=== PATIENT | female | born 2000 | race Caucasian/White ===

== ENCOUNTER 2023-01-04 01:02 | Inpatient (IN) | payer MEDICAID ==
[~2023-01-04 01:02] MED LIST: Sodium Chloride 0.9% 10 ML Syringe FLUSH PRN
[2023-01-04] MEDS ORDERED: Lactated Ringers 1,000 ML IV SCH ×3 (05:30→07:15)
[2023-01-04 06:09] LABS: EOSINOPHILS ABSOLUTE AUTO 0.11 K/mm3 (0.04-0.36); HEMATOCRIT 34.1 % (34.1-44.9); HEMOGLOBIN 10.8 gm/dl (11.2-15.7); IMMATURE GRAN ABSOLUTE AUTO 0.12 K/mm3 (0.00-0.10); IMMATURE GRAN PERCENT AUTO 1.1 % (<=1.0); LYMPHOCYTES ABSOLUTE AUTO 1.66 K/mm3 (1.18-3.74); LYMPHOCYTES PERCENT AUTO 15.4 % (19.3-51.7); MEAN CORPUSCULAR HEMOGLOBIN 30.3 pg (25.6-32.2); MEAN CORPUSCULAR HGB CONC 31.7 g/dl (32.2-35.5); MEAN CORPUSCULAR VOLUME 95.8 fl (79.4-94.8); MEAN PLATELET VOLUME 9.6 fl (9.4-12.3); MONOCYTES ABSOLUTE AUTO 0.62 K/mm3 (0.24-0.36); MONOCYTES PERCENT AUTO 5.7 % (4.7-12.5); NEUTROPHILS PERCENT AUTO 76.8 % (34.0-71.1); PLATELET COUNT,PLT 200 K/mm3 (182-369); RED BLOOD CELL COUNT 3.56 M/mm3 (3.98-5.22); WHITE BLOOD CELL COUNT,WBC 10.81 K/mm3 (3.98-10.04)
[2023-01-04] MEDS ORDERED: Citric Acid/Sodium Citrate Solution 30 ML Cup PO ONE (06:30)
[2023-01-04] MEDS ORDERED: Metoclopramide 10 MG/2 ML SDV IVPUSH ONE (06:30)
[2023-01-04] MEDS ORDERED: Metoclopramide 10 MG/2 ML SDV IM STA (06:40)
[2023-01-04] MEDS ORDERED: Citric Acid/Sodium Citrate Solution 30 ML Cup PO STA (06:41)
[2023-01-04] MEDS ORDERED: ceFAZolin 2 GM Vial ONE ×2 (07:01→07:48)
[2023-01-04] MEDS ORDERED: Morphine PF 1 MG/ML Amp ONE (07:01)
[2023-01-04] MEDS ORDERED: Lactated Ringers 1,000 ML ONE (07:01)
[2023-01-04] MEDS ORDERED: ePHEDrine 50 MG/ML SDV ONE (07:48)
[2023-01-04] MEDS ORDERED: Phenylephrine 1% 10 MG/ML SDV ONE (07:48)
[2023-01-04] MEDS ORDERED: Oxytocin 10 Units/1 ML SDV ONE ×2 (07:59→09:30)
[2023-01-04] MEDS ORDERED: Oxytocin/Lactated Ringers 10 UNIT/1,000 ML BAG IV SCH (08:00)
[2023-01-04] MEDS ORDERED: ceFAZolin 2 GM in Sodium Chloride 0.9% 50 ML IV ONE (08:00)
[2023-01-04] MEDS ORDERED: Ondansetron 4 MG/2 ML SDV ONE (08:02)
[2023-01-04] MEDS ORDERED: Ketorolac 30 MG/ML SDV ONE (08:07)
[2023-01-04] MEDS ORDERED: ceFAZolin 1 GM in Sodium Chloride 0.9% 50 ML IV ONE (08:30)
[2023-01-04] MEDS ORDERED: Sodium Chloride 0.9% 10 ML Syringe FLUSH SCH (09:00)
[2023-01-04] MEDS ORDERED: Methylergonovine 0.2 MG/1 ML Amp IM ONE (09:51)
[2023-01-04] MEDS ORDERED: Docusate Sodium 100 MG Cap PO PRN (09:53)
[2023-01-04] MEDS ORDERED: Dextrose 5%-Lactated Ringers 1,000 ML IV SCH (09:53)
[2023-01-04] MEDS ORDERED: Naloxone 0.4 MG/ML SDV IVPUSH PRN (09:53)
[2023-01-04] MEDS ORDERED: Methylergonovine 0.2 MG/1 ML Amp ONE ×2 (09:53→12:05)
[2023-01-04] MEDS ORDERED: diphenhydrAMINE 50 MG/ML SDV IVPUSH PRN (09:53)
[2023-01-04] MEDS ORDERED: Acetaminophen/oxyCODONE 325-5 MG Tab PO PRN (09:53)
[2023-01-04] MEDS ORDERED: Misoprostol 200 MCG Tab BUCCAL STA (10:36)
[2023-01-04] MEDS ORDERED: Carboprost Tromethamine 250 MCG/1 ML Amp IM ONE (12:23)
[2023-01-04] MEDS ORDERED: Tranexamic Acid 1,000 MG/10 ML Vial IVPUSH ONE (12:24)
[2023-01-04] MEDS ORDERED: Ondansetron 4 MG/2 ML SDV IVPUSH PRN (12:59)
[2023-01-04] MEDS: Ketorolac 30 MG/ML SDV IVPUSH SCH ×2 (14:28→20:34)
[2023-01-05] MEDS: Ketorolac 30 MG/ML SDV IVPUSH SCH (02:28)
[2023-01-05 06:17] LABS: HEMATOCRIT 25.9 % (34.1-44.9); MEAN CORPUSCULAR HEMOGLOBIN 30.9 pg (25.6-32.2); MEAN CORPUSCULAR HGB CONC 31.7 g/dl (32.2-35.5); MEAN CORPUSCULAR VOLUME 97.7 fl (79.4-94.8); MEAN PLATELET VOLUME 9.5 fl (9.4-12.3); PLATELET COUNT,PLT 160 K/mm3 (182-369); RED BLOOD CELL COUNT 2.65 M/mm3 (3.98-5.22)
[2023-01-05 06:39] LABS: HEMOGLOBIN 8.2 gm/dl (11.2-15.7)
[2023-01-05] MEDS: Ibuprofen 600 MG Tab PO PRN ×2 (07:31→20:46)
[2023-01-05] MEDS: Acetaminophen/oxyCODONE 325-5 MG Tab PO PRN ×2 (07:37→15:26)
[2023-01-06] MEDS: Acetaminophen/oxyCODONE 325-5 MG Tab PO PRN (07:34)
== END 2023-01-06 08:43 | disposition home or self-care (01) | DRG 787 ==
LOC: JD.OB 05:25
PROVIDERS: ADMIT Obstetrics & Gynecology; ATTEND Obstetrics & Gynecology
PROC: 10D00Z1 Extraction of Products of Conception, Low, Open Approach (ICD-10-PCS; principal; 2023-01-04)
PROC: 3E033VJ Introduction of Other Hormone into Peripheral Vein, Percutaneous Approach (ICD-10-PCS; 2023-01-04)
DX: O34.219 Maternal care for unspecified type scar from previous cesarean delivery (principal); O72.1 Other immediate postpartum hemorrhage; O99.824 Streptococcus B carrier state complicating childbirth; O99.214 Obesity complicating childbirth; O99.02 Anemia complicating childbirth; Z37.0 Single live birth; Z3A.38 38 weeks gestation of pregnancy; Z98.890 Other specified postprocedural states
CPT/HCPCS: 36415; 59025; 85025; 85027; 86592; 86850; 86900; 86901; A9270-GY; J0690; J1885; J2210; J2274; J2370; J2405; J2590; J2765; J3490; J7120; J7121